=== PATIENT | female | born 1970 | race Caucasian/White ===

== ENCOUNTER 2016-05-24 11:41 | Emergency (ER) | payer MEDICAID ==
[2016-05-24] MEDS ORDERED: HYDROcod/ACETAM 5/325 MG TABLET ONE (11:47)
[2016-05-24] MEDS ORDERED: DEXAMETHASONE 10 MG/ML VIAL PO STA (12:53)
[2016-05-24] MEDS ORDERED: BENZONATATE 100 MG CAPSULE PO STA (12:55)
[2016-05-24] MEDS ORDERED: ONDANSETRON ODT 4 MG TABLET TL STA (12:56)
[2016-05-24] MEDS ORDERED: ONDANSETRON ODT 4 MG TABLET ONE (13:01)
[2016-05-24] MEDS ORDERED: BENZONATATE 100 MG CAPSULE PO ONE (13:02)
[2016-05-24] MEDS ORDERED: DEXAMETHASONE 10 MG/ML VIAL ONE (13:02)
== END 2016-05-24 13:10 | disposition home or self-care (01) ==
DX: J11.1 Influenza due to unidentified influenza virus with other respiratory manifestations (principal)
CPT/HCPCS: 99283; A9270; Q0162

== ENCOUNTER 2016-05-26 11:56 | Emergency (ER) | payer MEDICAID ==
[2016-05-26] MEDS ORDERED: DEXAMETHASONE 10 MG/ML VIAL PO STA (12:28)
[2016-05-26] MEDS ORDERED: KETOROLAC 60 MG/2 ML VIAL IM STA (12:28)
[2016-05-26] MEDS ORDERED: KETOROLAC 60 MG/2 ML VIAL ONE (12:33)
[2016-05-26] MEDS ORDERED: DEXAMETHASONE 10 MG/ML VIAL ONE (12:33)
[2016-05-26] MEDS ORDERED: CHERRY SYRUP 10 ML UDC PO ONE (12:33)
== END 2016-05-26 14:11 | disposition home or self-care (01) ==
DX: M54.5 Low back pain (principal); I15.9 Secondary hypertension, unspecified
CPT/HCPCS: 81001; 96372; 99283; 99284; A9270

== ENCOUNTER 2016-07-17 10:34 | Outpatient (CLI) | payer MEDICAID | END 2016-07-17 10:35 | disposition home or self-care (01) | DX: Z12.31 Encounter for screening mammogram for malignant neoplasm of breast (principal) ==